=== PATIENT | male | born 1965 | race Caucasian/White ===

== ENCOUNTER 2019-08-21 17:15 | Emergency (ER) | payer OTHER ==
[~2019-08-21] VITALS: Ht 195.6 cm; Wt 99.8 kg
[2019-08-21] MEDS ORDERED: LISINOPRIL2.5 MG PO (17:22)
[2019-08-21] MEDS ORDERED: LIPITOR 20 MG T20 M1 PO (17:23)
[2019-08-21] MEDS ORDERED: AUGMENTIN 500-1 EACH PO (19:39)
[2019-08-21] MEDS ORDERED: HYDROCODON-ACE1 EAC7 PO (19:39)
[2019-08-21] MEDS ORDERED: ZOFRAN ODT4 MG PO (19:39)
[2019-08-21 20:45] VITALS: BP 145/76
== END 2019-08-21 20:45 | disposition home or self-care (01) ==
LOC: M.ERS 17:15
DX: S01.111A Laceration without foreign body of right eyelid and periocular area, initial encounter (principal); S01.511A Laceration without foreign body of lip, initial encounter; S02.40CA Maxillary fracture, right side, initial encounter for closed fracture; I10 Essential (primary) hypertension; E78.00 Pure hypercholesterolemia, unspecified; W10.0XXA Fall (on)(from) escalator, initial encounter; Y93.89 Activity, other specified; Y92.89 Other specified places as the place of occurrence of the external cause; Y99.8 Other external cause status